=== PATIENT | male | born 1980 | race American Indian/Alaskan Native ===

== ENCOUNTER 2019-12-28 05:44 | Emergency (ER) | payer SELFPAY ==
[2019-12-28 05:53] VITALS: BP 145/102
[2019-12-28] MEDS ORDERED: CLINDAMYCIN 150 MG/ML VIAL 6 ML IM ONE (07:07)
--- NOTE | 2019-12-28 07:12 | Emergency Department Report ---
ED ENT HPI - General Chief complaint: Dental/Oral Stated complaint: TOOTHACHE W/FACIAL SWELLING Time Seen by Provider: 12/28/19 07:03 Source: patient Mode of arrival: Ambulatory Limitations: No Limitations - History of Present Illness Initial comments: 39-year-old male with no significant past medical history presenting with dental pain and progressive facial swelling, gradual onset 2 days ago and worsening. Denies any fevers or systemic complaints. MD complaint: tooth pain -: Gradual Location: tooth # Severity: moderate Severity scale (0 -10): 5 Quality: aching Consistency: constant Improves with: none Worsens with: none Associated Symptoms: denies: fever - Related Data Previous Rx's Medication Instructions Recorded Last Taken Type Clindamycin [Clindamycin CAP] 450 mg PO Q8HR #90 capsule 12/28/19 Unknown Rx Ibuprofen [Motrin 600 MG tab] 600 mg PO Q6H PRN #30 tablet 12/28/19 Unknown Rx Allergies Allergy/AdvReac Type Severity Reaction Status Date / Time No Known Allergies Allergy Verified 12/28/19 05:52 ED Dental HPI - General Chief complaint: Dental/Oral Stated complaint: TOOTHACHE W/FACIAL SWELLING Time Seen by Provider: 12/28/19 07:03 Source: patient Mode of arrival: Ambulatory Limitations: No Limitations - Related Data Previous Rx's Medication Instructions Recorded Last Taken Type Clindamycin [Clindamycin CAP] 450 mg PO Q8HR #90 capsule 12/28/19 Unknown Rx Ibuprofen [Motrin 600 MG tab] 600 mg PO Q6H PRN #30 tablet 12/28/19 Unknown Rx Allergies Allergy/AdvReac Type Severity Reaction Status Date / Time No Known Allergies Allergy Verified 12/28/19 05:52 ED Review of Systems ROS: Stated complaint: TOOTHACHE W/FACIAL SWELLING Other details as noted in HPI Comment: All other systems reviewed and negative ENT: as per HPI ED Past Medical Hx - Past Medical History Previous Medical History?: Yes Additional medical history: Bronchitis - Surgical History Past Surgical History?: Yes Additional Surgical History: hernia - Social History Smoking Status: Current Every Day Smoker Substance Use Type: Alcohol, Marijuana - Medications Home Medications: Home Medications Medication Instructions Recorded Confirmed Last Taken Type Clindamycin [Clindamycin CAP] 450 mg PO Q8HR #90 capsule 12/28/19 Unknown Rx Ibuprofen [Motrin 600 MG tab] 600 mg PO Q6H PRN #30 tablet 12/28/19 Unknown Rx ED Physical Exam - General Limitations: No Limitations General appearance: alert, in no apparent distress - Head Head exam: Present: atraumatic, normocephalic - Eye Eye exam: Present: normal appearance - ENT ENT exam: Present: mucous membranes moist, other (Facial edema noted on the left, no periorbital cellulitis, abscess suspected arising from the area of tooth #11. Patient has severe dental decay. No neck swelling, no trismus, uvula midline) - Neck Neck exam: Present: normal inspection. Absent: meningismus - Respiratory Respiratory exam: Present: normal lung sounds bilaterally. Absent: respiratory distress - Cardiovascular Cardiovascular Exam: Present: regular rate, normal rhythm. Absent: systolic murmur, diastolic murmur, rubs, gallop - Extremities Exam Extremities exam: Present: normal inspection - Back Exam Back exam: Present: normal inspection - Neurological Exam Neurological exam: Present: alert, oriented X3 - Psychiatric Psychiatric exam: Present: normal affect, normal mood - Skin Skin exam: Present: warm, dry, intact, normal color. Absent: rash ED Course Vital Signs 12/28/19 05:48 Temperature 98.5 F Pulse Rate 113 H Respiratory 18 Rate Blood Pressure 145/102 O2 Sat by Pulse 99 Oximetry ED Medical Decision Making - Medical Decision Making Patient presenting with dental abscess. We will treat with clindamycin by giving first dose here and encouraged outpatient follow-up with dentist in the next few days. Return precautions given. - Differential Diagnosis Dental abscess, dental caries, cellulitis Critical care attestation.: If time is entered above; I have spent that time in minutes in the direct care of this critically ill patient, excluding procedure time. ED Disposition Clinical Impression: Dental abscess Disposition: DC-01 TO HOME OR SELFCARE Is pt being admited?: No Condition: Good Instructions: Dental Abscess (ED) Additional Instructions: Follow up with dentist in 1-3 days. Prescriptions: Clindamycin [Clindamycin CAP] 450 mg PO Q8HR #90 capsule Ibuprofen [Motrin 600 MG tab] 600 mg PO Q6H PRN #30 tablet PRN Reason: Pain Time of Disposition: 07:11
== END 2019-12-28 07:40 | disposition home or self-care (01) ==
LOC: ED 05:44
DX: K04.7 Periapical abscess without sinus (principal); F17.200 Nicotine dependence, unspecified, uncomplicated; F12.10 Cannabis abuse, uncomplicated; Z98.890 Other specified postprocedural states
CPT/HCPCS: 96372; 99282